=== PATIENT | female | born 1995 | race Caucasian/White ===

== ENCOUNTER 2016-12-26 08:53 | Emergency (ER) | payer OTHER ==
[~2016-12-26] VITALS: Ht 154.9 cm; Wt 77.1 kg
[2016-12-26 08:56] VITALS: BP_SYST 110
[2016-12-26] MEDS ORDERED: NACL 0.9% 1,000 ML IV ONE (09:18)
[2016-12-26] MEDS ORDERED: DICYCLOMINE HCL 20 MG/2 ML AMP IM ONE (09:30)
[2016-12-26 09:57] LABS: BASOPHILS # (AUTO) 0.1 K/uL (0.0-0.2); BASOPHILS % (AUTO) 0.9 % (0.0-2.0); EOSINOPHILS # (AUTO) 0.1 K/uL (0.0-0.4); HEMOGLOBIN 12.6 g/dL (12.0-16.0); LYMPHOCYTES % (AUTO) 42.1 % (20.5-51.5); MEAN CORPUSCULAR HEMOGLOBIN 30 pg (27-31); MEAN CORPUSCULAR HGB CONC 33 % (32-36); MEAN CORPUSCULAR VOLUME 90 fL (79.0-98.0); MONOCYTES # (AUTO) 0.6 K/uL (0.0-1.0); MONOCYTES % (AUTO) 8.3 % (1.7-9.3); NEUTROPHILS # (AUTO) 3.2 K/uL (1.8-7.7); NEUTROPHILS % (AUTO) 47.7 % (40.0-70.0); PLATELET COUNT (AUTO) 263 K/uL (130-430); RED BLOOD CELL COUNT(AUTO) 4.24 MIL/uL (4.2-6.2); RED CELL DISTRIBUTION WIDTH 12.3 % (9.0-15.0)
[2016-12-26 10:03] LABS: CLARITY/URINE HAZY (CLEAR); COLOR,URINE YELLOW (YELLOW)
[2016-12-26 10:04] LABS: BILIRUBIN,URINE NEGATIVE (NEGATIVE); BLOOD, URINE 2+ (NEGATIVE); GLUCOSE,URINE NEGATIVE (NEGATIVE); KETONES,URINE NEGATIVE (NEGATIVE); LEUKOCYTE ESTERASE ,URINE TRACE (NEGATIVE); NITRITE, URINE NEGATIVE (NEGATIVE); PROTEIN URINE NEGATIVE (NEGATIVE); UROBILINOGEN,URINE 0.2 (0.2-1.0)
[2016-12-26 10:05] LABS: CALCIUM 9.2 mg/dL (8.4-11.0); CREATININE 0.78 mg/dL (0.55-1.30)
[2016-12-26 10:09] LABS: ALBUMIN 3.6 g/dL (3.4-4.8); TOTAL BILIRUBIN 0.4 mg/dL (0.0-1.0); TOTAL PROTEIN, SERUM 7.9 g/dL (6.4-8.3)
[2016-12-26 10:10] LABS: POTASSIUM 4.2 mmol/L (3.5-5.1)
[2016-12-26 10:13] LABS: BACTERIA,URINE MODERATE /HPF (None Seen)
[2016-12-26 11:42] VITALS: BP_SYST 101
== END 2016-12-26 11:40 | disposition home or self-care (01) ==
LOC: SED 08:53
DX: R19.7 Diarrhea, unspecified (principal); R10.815 Periumbilic abdominal tenderness
CPT/HCPCS: 36415; 80053; 81000; 81025; 82272; 83690; 85025; 87086; 96360; 96372; 99284; J0500; J7030

== ENCOUNTER 2024-02-21 19:42 | Emergency (ER) | payer BC, OTHER ==
[~2024-02-21] VITALS: Ht 157.5 cm; Wt 79.4 kg
[2024-02-21 20:15] VITALS: BP_SYST 115; PULSE 120; RESP 18; TEMP 98; O2SAT 98
[2024-02-21 20:40] LABS: BILIRUBIN,URINE 1+ (NEGATIVE); BLOOD, URINE NEGATIVE (NEGATIVE); CLARITY/URINE CLEAR (CLEAR); COLOR,URINE YELLOW (YELLOW); GLUCOSE,URINE NEGATIVE (NEGATIVE); KETONES,URINE TRACE (NEGATIVE); LEUKOCYTE ESTERASE ,URINE NEGATIVE (NEGATIVE); NITRITE, URINE NEGATIVE (NEGATIVE); PROTEIN URINE TRACE (NEGATIVE); UROBILINOGEN,URINE 0.2 (0.2-1.0)
[2024-02-21 21:00] LABS: BACTERIA,URINE None Seen /HPF (None Seen)
[2024-02-21] MEDS ORDERED: IBUP-1969 PO (23:15)
[2024-02-21] MEDS ORDERED: TRAM50TA2 PO (23:15)
[2024-02-21] MEDS: LIDOCAINE 1% 10 MG/ML, 20 ML MDV ID ONE (23:17)
[2024-02-21 23:36] VITALS: BP_SYST 110; PULSE 90; RESP 14; TEMP 97.5; O2SAT 98
== END 2024-02-21 23:25 | disposition home or self-care (01) ==
LOC: SED 19:42
DX: N76.4 Abscess of vulva (principal)
CPT/HCPCS: 81000; 81001; 81015; 99284